=== PATIENT | female | born 1955 | race Caucasian/White ===

== ENCOUNTER 2022-08-11 14:46 | Outpatient (CLI) | payer OTHER | END 2022-08-11 14:48 | disposition home or self-care (01) | LOC: LAB 14:46 | PROVIDERS: ATTEND Radiology Diagnostic Radiology | DX: R92.1 Mammographic calcification found on diagnostic imaging of breast (principal) ==

== ENCOUNTER 2022-08-13 07:04 | Outpatient (CLI) | payer OTHER | END 2022-08-13 07:10 | disposition home or self-care (01) | LOC: MRI 07:04 | PROVIDERS: ATTEND Obstetrics & Gynecology | DX: Z01.419 Encounter for gynecological examination (general) (routine) without abnormal findings (principal); R93.89 Abnormal findings on diagnostic imaging of other specified body structures; R92.1 Mammographic calcification found on diagnostic imaging of breast | CPT/HCPCS: 72197; Q9965; 72196 ==